=== PATIENT | male | born 1950 | race Caucasian/White ===

== ENCOUNTER 2022-02-11 10:51 | Day surgery (SDC) | payer MEDICARE, OTHER, SELFPAY ==
--- NOTE | 2022-02-02 08:55 | EKG12_ITS ---
Test Reason : DC OP Blood Pressure : / mmHG Vent. Rate : 071 BPM Atrial Rate : 071 BPM P-R Int : 146 ms QRS Dur : 090 ms QT Int : 398 ms P-R-T Axes : 022 033 071 degrees QTc Int : 432 ms Normal sinus rhythm Normal ECG Confirmed by TE THOMAS, NARCISO ([id number]), art editor PEG ZHENG ([id number]) on 02/03/2022 12:50:51 PM Referred By: Inocente Galicia Confirmed By:NARCISO TIWARI MD
[2022-02-02 09:48] LABS: Hematocrit 43.9 % (40-54); Hemoglobin 15.7 g/dL (13.0-16.5); Mean Corp Hgb Conc 35.8 g/dL (32-36); Mean Corpuscular Hgb 36.1 pg (27.0-32.0); Mean Corpuscular Volume 100.9 fL (80-94); Mean Platelet Vol. 8.7 fl (6.2-12.0); Platelet Count 179 K/mm3 (150-450); RBC Distribution Width CV 12.7 % (11.6-14.6); RBC Distribution Width SD 47.4 fl (35.1-43.9); Red Blood Count 4.35 M/mm3 (4.6-6.2); White Blood Count 8.3 K/mm3 (4.4-11.0)
[2022-02-02 10:10] LABS: Prothrombin Time (Protime)PT. 13.1 SECONDS (11.7-14.9)
[2022-02-02 10:11] LABS: Partial Thromboplast Time 33.9 Seconds (24.1-36.2)
[2022-02-02 10:20] LABS: AST(SGOT) 28 U/L (15-37); Alanine Aminotransfer ALT/SGPT 36 U/L (16-61); Albumin, Serum 4.1 g/dL (3.2-5.0); Alkaline Phosphatase 64 U/L (45-117); Anion Gap 5 (5-15); BUN 9 mg/dL (7-18); BUN/Creat Ratio 10.3 RATIO (10-20); Bilirubin, Direct 0.13 mg/dL (0.00-0.30); Calcium,Total 8.8 mg/dL (8.5-10.1); Chloride 104 mmol/L (98-107); Creatinine, Serum 0.88 mg/dL (0.70-1.30); EST Glomerular Filtration Rate 91 mL/min (>60); Est Glom Filt Rate - Afr Amer 110 mL/min (>60); Glucose 88 mg/dL (74-106); Potassium 4.1 mmol/L (3.5-5.1); Protein, Total 8.1 g/dL (6.4-8.2); Sodium Level 133 mmol/L (136-145)
[2022-02-11 11:24] VITALS: BP 151/86; PULSE 85; RESP 18; TEMP 37.1; O2SAT 95; BMI 24.3
[2022-02-11] MEDS: Lactated Ringers 1,000 ML 15 ML IV (11:32)
--- NOTE | 2022-02-11 12:39 | PCM.HP.BLA ---
History and Physical Date of Admission: 02/11/22 Intake Vital Signs ? 01/19/2208:30 Height 6 ft 1 in Weight: 183 lb 6 oz BMI 24.2 BP 163/81 H Blood Pressure Location Rt brachial Position Sitting Respiration 18 Pulse 80 Pulse Source NIBP Temp 97.5 F L Temp Source Temporal Pulse Oximetry (%) 98 Oxygen Delivery Method room air Intake Visit Reasons:?Hernia Chief Complaint: right inguinal hernia Control Supervisor Required: No Is patient in pain?: No Allergies No Known Allergies Allergy (Verified 01/18/22 08:31) Medications amlodipine 10 mg tablet tablet PO 01/18/22 [History Confirmed 01/18/22] PFSH Medical History?(Updated 01/18/22 @ 08:29 by Irma Newell) Cough HTN (hypertension) Osteoarthritis Surgical History?(Updated 01/18/22 @ 08:29 by Irma Newell) History of colonoscopy (~2010) Family History?(Updated 01/18/22 @ 08:30 by Irma Newell) Father CVA (cerebral vascular accident)Mother CVA (cerebral vascular accident) Social History?(Updated 01/18/22 @ 08:30 by Irma Newell) Smoking Status:? Current every day smoker Tobacco: How many years used:? 52 HPI HPI HPI: ALFREDO MUSA, is a 72 M who presents to the office today for right groin bulging and pain.? The patient says has been present for about a year.? Patient says that with heavy lifting he experienced this hernia and it has grown since then.? He is not having any discomfort on the opposite side.? He denies any nausea vomiting or fevers or chills. ROS General General: No weight change or fatigue HEENT HEENT: No difficulty swallowing Endo Endocrine: No thyroid disease Musc Musculoskeletal: No back problems or arthritis Cardio Cardiovascular: No pacemaker, heart disease, atrial fibrillation, high blood pressure, heart attack, heart stent, palpitations or chest pain Psych Psychiatric: No depression or anxiety Resp Respiratory: No shortness of breath, No cough, No COPD, No asthma and No emphysema Gastro Gastrointestinal: No abdominal pain, No nausea or vomiting, No diarrhea, No constipation, No blood in stool, No acid reflux, No hemorrhoids, No ulcers, No gallbladder problem and No black,tarry stools Additional Details: Right groin bulging Maycol Hematologic: No blood thinners Exam Const General: cooperative Orientation: alert and oriented x3 HENMT Head: normal to inspection Neck Neck: normal visual inspection and full ROM Chest Chest palpation & inspection: normal inspection of the chest Resp Effort & Inspection: normal respiratory effort Auscultation: clear to auscultation bilaterally Cardio Rate: regular rate Rhythm: regular rhythm GI Inspection: non-distended Palpation: soft, hernia indirect inguinal on the right and nontender Skin General: no rashes or lesions noted Neuro General: patient alert and patient oriented x3 Extrem General: full ROM Psych Appearance: grossly normal Mental Status: mental status grossly normal Assessment and Plan Assessment and Plan (1) Right inguinal hernia: ?Status:?Acute ?Plan: The patient has a reducible right inguinal hernia.? I discussed robotic assisted laparoscopic right inguinal hernia repair with the patient.? I discussed the procedure in detail as well as the risks including but not limited to bleeding, infection, injury to surrounding organs such as the bowel, bladder, spermatic cord.? Patient understands the risks and is willing proceed with surgery.? I discussed contralateral repair if there is a hernia present he would like it repaired if it is present. Inocente Galicia MD Pager: [facility] [address] [place] [address], [address] [place] [address] Office: I have re-examined the patient. There are no clinical changes since date of exam.
[2022-02-11] MEDS: Cefazolin 2 GM in 0.9% Normal Saline 100 ML IV (13:04)
[2022-02-11] MEDS: Bupivacaine 0.25% 30 ML Vial (14:00)
--- NOTE | 2022-02-11 14:26 | OP.PCM_ITS ---
Report of Operation Date of Procedure: 02/11/22 Pre-Operative Diagnosis: Right inguinal hernia Post-Operative Diagnosis: Right inguinal hernia Surgery/Procedure Performed:: Robotic assisted laparoscopic right inguinal hernia repair with mesh Description of Procedure: Patient was brought back to the operating room and general anesthesia was induced. The abdomen was prepped and draped in usual sterile fashion. A midline incision was made superior to the umbilicus and deepened to the fascia which was elevated and a Veress needle was placed into the abdomen and a drop test was performed. The abdomen was then insufflated 15 mmHg and the Veress needle was removed. Port was placed into the abdomen and then the camera was placed and the abdomen inspected for injuries and there were none. Next the patient was placed in Trendelenburg position. Under direct visualization an 8 mm port was placed in the right side of the abdomen as well as the left side of the abdomen. The robot was then docked. Using electrocautery scissors the pe ritoneum was incised in the right inguinal region and dissection was carried inferiorly until the hernia sac was dissected free and reduced. After there was enough dissection a ProGrip mesh was placed into the right inguinal region and unfolded completely covering the defect. Next the peritoneum was reapproximated using a running 3-0V lock suture to completely cover the mesh. There was a small opening in the peritoneum which was closed with 3-0 Vicryl suture. Next the robot was undocked and the ports and the instruments were removed and the abdomen was allowed to desufflate. The incisions were injected with local anesthetic and then closed with interrupted 4-0 Monocryl suture. Steri-Strips and bandages were applied. Scrotum was checked in the end the case contain both testicles. Patient was taken to PACU in stable condition. Grafts/Implants Used: ProGrip mesh in the right groin Admit VTE Documentation VTE Mechan Device Prophylaxis: SCD's
--- NOTE | 2022-02-11 14:30 | DCINST_ITS ---
Discharge Instructions Procedure Hernia Diet Discharge Diet: Light diet - advance as tolerated Activity Discharge Activity: May Not Drive (for 2-3 days or while taking narcotic pain meds.) and May Shower (with the bandage in place 1-2 days after surgery.) Lifting Restrictions: 15 pounds for 4 weeks. Additional Activity Instructions:: Climbing stairs is fine, walking is encouraged. Sitting in bed may be uncomfortable. Sitting up using your lateral muscles (sitting up sideways) is usually more comfortable. Do not drive, work heavy equipment of sign legal documents for 24 hours. If your hernia repair was an inguinal repair, you may have scrotal swelling, an ice pack and/or athletic support can provide more comfort. Pain medications may cause nausea, you should typically eat light foods as you take your pain medications. Pain medications may also cause constipation. If you have difficulty with this, discuss with your doctor. Dressing / Incision Call your doctor if your incision/area has: Continuous Slow Oozing, Sudden Increased Bleeding, Increased Pain/ Swelling, Increased Redness and Foul Smelling Discharge Call your doctor if you observe: Fever of 101 or Higher Suture Line Care: Avoid Pulling/Pushing and Avoid Pinching/Bending Remove Dressing in: 2 days (Remove clear bandages in 2 days, remove Steri-Strips in 7 to 10 days.) Additional Dressing/Incision Instructions:: Ibuprofen and Tylenol for pain, Percocet as needed. Follow Up Care Please Follow Up With: Inocente Galicia MD Test Results: Test results from this visit will be discussed in further detail at your follow- up appointment, if applicable. Discharge Plan Admission Attending Provider: Inocente Galicia Primary Care Provider: Katharine Aguila Consulting Providers: Demian Santiago Discharge Orders/Prescriptions Prescriptions: New oxycodone-acetaminophen [Percocet] 5-325 mg tablet 1 tab PO Q4H PRN (Reason: pain) 5 Days Qty: 10 0RF No Action amlodipine 10 mg tablet 10 mg PO DAILY Other Ambulatory Orders: 12 Lead EKG (Routine) Location: None Selected Ordered By: Dr. Demian Santiago Referrals / Follow Up: Katharine Aguila MD [Primary Care Provider] - Disposition Disposition (needs filled in before D/C Order can be placed): Home, Self Care
[2022-02-11 14:32] VITALS: BP 151/86; PULSE 75; RESP 16; TEMP 36.6; O2SAT 92
[2022-02-11 14:44] VITALS: BP 151/86; PULSE 73; RESP 16; O2SAT 90
[2022-02-11 15:00] VITALS: BP 151/86; BP 158/86; PULSE 70; RESP 16; O2SAT 91
[2022-02-11 15:12] VITALS: BP 151/86; BP 151/88; PULSE 77; RESP 16; TEMP 36.5; O2SAT 96
[2022-02-11] MEDS: Acetaminophen 325 MG Tablet PO (16:06)
[2022-02-11 16:08] VITALS: BP 139/79; BP 151/86; PULSE 88; RESP 18; TEMP 36.6; O2SAT 93
== END 2022-02-11 16:39 | disposition home or self-care (01) ==
LOC: SDC 10:53 → AC 10:53
PROVIDERS: Anesthesiology; PCP Pediatrics; Referring Provider Surgery; Visit Provider Surgery
PROC: (CPT 49650; principal; 2022-02-11 12:10)
DX: K40.90 Unilateral inguinal hernia, without obstruction or gangrene, not specified as recurrent (principal); F17.200 Nicotine dependence, unspecified, uncomplicated; I10 Essential (primary) hypertension; Z79.899 Other long term (current) drug therapy
CPT/HCPCS: 49650; S2900; 00840; 36415; 80048; 80076; 85027; 85610; 85730; 93005; J7120; J2405